=== PATIENT | female | born 1955 | race Caucasian/White ===

== ENCOUNTER 2018-10-10 06:04 | Day surgery (SDC) | payer OTHER ==
[~2018-10-10] VITALS: Ht 172.7 cm; Wt 88.4 kg
[2018-10-10] MEDS ORDERED: ONDANSETRON 4 MG INJ IV PRN (07:30)
[2018-10-10] MEDS ORDERED: MEPERIDINE 25 MG INJ IV PRN (07:30)
[2018-10-10] MEDS ORDERED: FENTAnyl 50 MCG/ML VIAL IV PRN ×3 (07:30)
[2018-10-10] MEDS ORDERED: METOCLOPRAMIDE 10 MG INJ IV PRN (07:30)
[2018-10-10] MEDS ORDERED: LABETALOL HCL 20MG INJ IV PRN (07:30)
[2018-10-10] MEDS ORDERED: OXYCODONE/ACETAMINOPHEN (5/325) TAB PO PRN (07:30)
[2018-10-10] MEDS ORDERED: DIPHENHYDRAMINE 50 MG INJ IV PRN (07:30)
[2018-10-10] MEDS ORDERED: HYDROmorphONE 1 MG/5 ML IV SYRINGE IV PRN ×3 (07:30)
[2018-10-10] MEDS ORDERED: hydrALAzine 20 MG INJ IV PRN (07:30)
[2018-10-10] MEDS ORDERED: EPHEDrine SULFATE 50 MG/5 ML SYG IV PRN (07:30)
--- NOTE | 2018-10-10 07:30 | PREAC ---
Date/Time of Note Date/Time of Note DATE: 10/10/18 TIME: 07:28 Anesthesia Eval and Record Evaluation Time Pre-Procedure Interview DATE: 10/10/18 TIME: 07:28 Age 63 Sex female NPO: 8 hrs Preoperative diagnosis Positive OB stool, Screening Planned procedure Colonoscopy Past Medical History Past Medical History: Includes Cardio: HTN, Dyslipidemia Endo: Diabetes GI: Obesity Surgery & Anesthesia Issues No known issue Meds Anticoagulation: No Beta Alejo within 24 hr: No Reason Beta Alejo not given: Pt. not on B-Alejo Meds reviewed: Yes Allergies Allergies Reviewed: Yes Labs/Studies Labs Reviewed: Reviewed by anesthesiologist test: N/A Studies: ECG (n/a), CXR (n/a) Pre-procedure Exam Airway: Adequate mouth opening, Adequate thyromental dist Mallampati: Mallampati II Teeth: Normal Lung: Normal Heart: Normal ASA Physical Status ASA physical status: 3 Emergency: None Planned Anesthetic General/MAC: MAC Planned Pain Management Parenteral pain med Pre-operative Attestations Prior to commencing anesthesia and surgery, the patient was re-evaluated, there was verification of: *The patient's identity *The results of appropriate recent lab work and preoperative vital signs *The above evaluation not changing prior to induction *Anesthetic plan, risk benefits, alternative and complications discussed with patient/family; questions answered; patient/family understands, accepts and wishes to proceed. PATRIZIA CARTER MD Oct 10, 2018 07:30
[2018-10-10] MEDS ORDERED: ZOCAR (07:31)
[2018-10-10] MEDS ORDERED: GLUCOPHAGE (07:31)
[2018-10-10] MEDS ORDERED: VITAMIN B12 (07:31)
[2018-10-10] MEDS ORDERED: VIT D (07:31)
[2018-10-10] MEDS ORDERED: ZESTRIL (07:31)
[2018-10-10] MEDS ORDERED: PROPOFOL 20 ML ONE (07:35)
[2018-10-10 07:42] VITALS: BP 181/80; PULSE 72; RESP 12
--- NOTE | 2018-10-10 08:14 | PAC ---
Date/Time of Note Date/Time of Note DATE: 10/10/18 TIME: 08:14 Post-Anesthesia Notes Post-Anesthesia Note Last documented vital signs T: 98.1 Activity: WNL Respiratory function: WNL Cardiovascular function: WNL Mental status: Baseline Pain reasonably controlled: Yes Hydration appropriate: Yes Nausea/Vomiting absent: Yes PATRIZIA CARTER MD Oct 10, 2018 08:14
[2018-10-10 08:35] VITALS: BP 115/63; PULSE 66; RESP 22
== END 2018-10-10 11:10 | disposition home or self-care (01) ==
LOC: GIL 06:04
PROVIDERS: ATTEND Internal Medicine Gastroenterology
DX: Z12.11 Encounter for screening for malignant neoplasm of colon (principal); K64.4 Residual hemorrhoidal skin tags; I10 Essential (primary) hypertension; E78.5 Hyperlipidemia, unspecified; E11.9 Type 2 diabetes mellitus without complications; E66.9 Obesity, unspecified; Z68.29 Body mass index [BMI] 29.0-29.9, adult
CPT/HCPCS: 45378; 82962; Z7610